=== PATIENT | female | born 1965 | race Two or more races ===

== ENCOUNTER 2018-10-12 17:35 | Inpatient (IN) | payer OTHER ==
[~2018-10-12] VITALS: Ht 160 cm; Wt 74.8 kg
--- NOTE | 2018-10-12 17:46 | NUR ---
THIS IS A 53 YEAR OLD FEMALE WHO C/O OF SHARP ABD PAIN X 4 DAYS, ALONG WITH PAINFUL URINATION. TO BATHROOM, INSTRUCTED NEED FOR UA. FAMILY AT BS
[2018-10-12] MEDS ORDERED: ONDANSETRON 2MG/ML, 2ML ONE ×2 (18:00→19:27)
[2018-10-12] MEDS ORDERED: ONDANSETRON 2MG/ML, 2ML IVPush ONE ×2 (18:00→19:30)
[2018-10-12] MEDS ORDERED: MORPHINE SULFATE 4 MG/ML, 1ML ONE ×2 (18:01→19:28)
[2018-10-12] MEDS: MORPHINE SULFATE 4 MG/ML, 1ML IVPush PRN ×2 (18:12→19:31)
[2018-10-12 18:13] LABS: BASOPHILS # (AUTO) 0.02 x10^3/uL (0-0.1); BASOPHILS % (AUTO) 0 % (0-1); EOSINOPHILS # (AUTO) 0.22 x10^3/uL (0-0.4); EOSINOPHILS % (AUTO) 2 % (1-7); LYMPHOCYTES # (AUTO) 2.05 x10^3/uL (1-3.4); LYMPHOCYTES % (AUTO) 22 % (22-44); MD NO; MEAN CORPUSCULAR HEMOGLOBIN 28.9 pg (27.0-34.8); MEAN CORPUSCULAR HGB CONC 33.4 g/dL (32.4-35.8); MEAN CORPUSCULAR VOLUME 86.4 fL (80-100); MONOCYTES # (AUTO) 0.59 x10^3/uL (0.2-0.8); MONOCYTES % (AUTO) 6 % (2-9); NEUTROPHILS # (AUTO) 6.26 x10^3/uL (1.8-6.8); NEUTROPHILS % (AUTO) 69 % (42-75); PLATELET COUNT 285 x10^3/uL (130-400); RED BLOOD COUNT 5.38 x10^6/uL (3.82-5.3); RED CELL DISTRIBUTION WIDTH 14.5 % (9.6-15.2)
--- NOTE | 2018-10-12 18:15 | NUR ---
MEDICATED PER ORDER, PT TOLERATED WELL
[2018-10-12 18:20] LABS: MICROSCOPIC INDICATED
[2018-10-12 18:24] LABS: ALANINE AMINOTRANSFERASE 19 U/L (12-78); ANION GAP 9 mmol/L (5-15); CALCIUM 9.2 mg/dL (8.5-10.1); CHLORIDE 99 mmol/L (98-107); CREATININE 1.09 mg/dL (0.55-1.02)
[2018-10-12 18:26] LABS: ALKALINE PHOSPHATASE 116 U/L (45-117); BILIRUBIN,TOTAL 0.5 mg/dL (0.2-1.0); TOTAL PROTEIN 8.6 g/dL (6.4-8.2)
[2018-10-12 18:32] LABS: CULTURE INDICATED? NO
[2018-10-12 18:54] LABS: INTERNATIONAL NORMALIZED RATIO 1.06 (0.93-1.1); PROTHROMBIN TIME 11.1 Seconds (9.6-11.5)
--- NOTE | 2018-10-12 19:07 | NUR ---
PT RESTING CALMLY, DENIES NEEDS, MONITORS IN PLACE, CALL LIGHT WITHIN REACH. AWAITING CT RESULT
[2018-10-12] MEDS ORDERED: PIPERACILLIN/TAZO/PMX 3.375GM 50 ML ONE (19:28)
[2018-10-12] MEDS ORDERED: PIPERACILLIN/TAZO/PMX 3.375GM 50 ML IV ONE (19:30)
[2018-10-12] MEDS ORDERED: METRONIDAZOLE PMX 500MG/100ML 100 ML IV ONE (19:30)
--- NOTE | 2018-10-12 19:36 | NUR ---
PT MEDICATED PER MAR, AWAITING ROOM FOR ADMIT
--- NOTE | 2018-10-12 19:46 | NUR ---
ATTEMPTED TO CALL REPORT, NO ANSWER AT THIS TIME
[2018-10-12] MEDS ORDERED: SODIUM CHLORIDE 0.9% 1,000ML IVBOLUS ONE (20:00)
[2018-10-12] MEDS ORDERED: ONDANSETRON 2MG/ML, 2ML IVPush PRN (20:30)
[2018-10-12] MEDS ORDERED: PROPOFOL 50 ML ONE (20:40)
[2018-10-12] MEDS ORDERED: FENTANYL PF 250 MCG/5ML ONE (20:40)
[2018-10-12] MEDS ORDERED: MIDAZOLAM 1 MG/ML, 2ML ONE (20:40)
[2018-10-12] MEDS ORDERED: DEXAMETHASONE 4 MG/ML, 1ML ONE (20:45)
[2018-10-12] MEDS ORDERED: ROCURONIUM 10MG/ML,5ML ONE (20:45)
[2018-10-12] MEDS ORDERED: KETOROLAC 30 MG/1 ML ONE (20:45)
[2018-10-12] MEDS ORDERED: SUCCINYLCHOLINE 20 MG/ML, 10ML ONE (20:45)
[2018-10-12] MEDS ORDERED: hydrALAzine 20 MG/ML, 1ML IV PRN (21:30)
[2018-10-12] MEDS ORDERED: MEPERIDINE/PF 25MG/0.5ML IVPush PRN (21:30)
[2018-10-12] MEDS ORDERED: EPHEDRINE 50 MG/ML, 1ML IVPush PRN (21:30)
[2018-10-12] MEDS ORDERED: MIDAZOLAM 1 MG/ML, 2ML IV PRN (21:30)
[2018-10-12] MEDS ORDERED: OXYcodone 5 MG/5 ML ORAL.SOL UDC PO PRN (21:30)
[2018-10-12] MEDS ORDERED: MORPHINE SULFATE 4 MG/ML, 1ML IVPush PRN (21:30)
[2018-10-12] MEDS ORDERED: METOPROLOL 1 MG/ML, 5ML IV PRN (21:30)
[2018-10-12] MEDS ORDERED: DIAZEPAM 5 MG/ML, 2ML IVPush PRN (21:30)
[2018-10-12] MEDS ORDERED: ONDANSETRON ODT 8 MG PO PRN (21:30)
[2018-10-12] MEDS ORDERED: EPHEDRINE 50 MG/ML, 1ML IM PRN (21:30)
[2018-10-12] MEDS ORDERED: DIPHENHYDRAMINE 50 MG/ML, 1ML IVPush PRN (21:30)
[2018-10-12] MEDS ORDERED: ONDANSETRON 2MG/ML, 2ML IV PRN (21:30)
[2018-10-12] MEDS ORDERED: OXYcodone 5 MG/5 ML ORAL.SOL UDC ONE (22:16)
[2018-10-12] MEDS ORDERED: FENTANYL PF 100 MCG/2ML ONE (22:16)
[2018-10-12] MEDS: FENTANYL PF 100 MCG/2ML IV PRN ×2 (22:17→22:28)
[2018-10-12 22:59] VITALS: BP 98/66
[2018-10-12] MEDS: SODIUM CHLORIDE 0.9% 1,000 ML IV SCH (23:54)
[2018-10-13] MEDS: PIPERACILLIN/TAZO/PMX 3.375GM 50 ML IV SCH ×4 (01:06→19:45)
[2018-10-13 02:03] VITALS: BP 99/67
[2018-10-13] MEDS: morphine SULFATE 10 MG/ML, 1ML IVPush PRN ×3 (04:39→18:08)
[2018-10-13 05:05] LABS: MEAN CORPUSCULAR HGB CONC 33.5 g/dL (32.4-35.8); MEAN CORPUSCULAR VOLUME 86.8 fL (80-100); MEAN PLATELET VOLUME 10.1 fL (7.4-10.4); PLATELET COUNT 245 x10^3/uL (130-400); RED BLOOD COUNT 4.62 x10^6/uL (3.82-5.3); RED CELL DISTRIBUTION WIDTH 14.8 % (9.6-15.2)
[2018-10-13 05:10] LABS: ALANINE AMINOTRANSFERASE 25 U/L (12-78); ALBUMIN 3.2 g/dL (3.4-5.0); ANION GAP 6 mmol/L (5-15); CHLORIDE 103 mmol/L (98-107); CREATININE 1.13 mg/dL (0.55-1.02)
[2018-10-13 05:13] LABS: ALKALINE PHOSPHATASE 94 U/L (45-117); BILIRUBIN,TOTAL 0.7 mg/dL (0.2-1.0)
[2018-10-13 05:49] LABS: BASOPHILS # (AUTO) 0.05 x10^3/uL (0-0.1); BASOPHILS % (AUTO) 0 % (0-1); EOSINOPHILS % (AUTO) 0 % (1-7); LYMPHOCYTES # (AUTO) 0.73 x10^3/uL (1-3.4); LYMPHOCYTES % (AUTO) 4 % (22-44); MD SCAN; MONOCYTES # (AUTO) 0.84 x10^3/uL (0.2-0.8); MONOCYTES % (AUTO) 5 % (2-9); NEUTROPHILS # (AUTO) 16.68 x10^3/uL (1.8-6.8); NEUTROPHILS % (AUTO) 91 % (42-75)
[2018-10-13] MEDS: SODIUM CHLORIDE 0.9% 1,000 ML IV SCH ×2 (08:44→18:00)
[2018-10-13 09:26] VITALS: BP 99/64
[2018-10-13 13:00] VITALS: BP 93/57
[2018-10-13 19:21] VITALS: BP 97/64
[2018-10-14 01:05] VITALS: BP 94/68
[2018-10-14] MEDS: SODIUM CHLORIDE 0.9% 1,000 ML IV SCH (01:29)
[2018-10-14] MEDS: PIPERACILLIN/TAZO/PMX 3.375GM 50 ML IV SCH ×4 (01:29→19:15)
[2018-10-14] MEDS: morphine SULFATE 10 MG/ML, 1ML IVPush PRN ×3 (03:07→19:29)
[2018-10-14 05:40] LABS: BASOPHILS # (AUTO) 0.03 x10^3/uL (0-0.1); BASOPHILS % (AUTO) 0 % (0-1); EOSINOPHILS # (AUTO) 0.08 x10^3/uL (0-0.4); EOSINOPHILS % (AUTO) 1 % (1-7); LYMPHOCYTES # (AUTO) 1.48 x10^3/uL (1-3.4); LYMPHOCYTES % (AUTO) 18 % (22-44); MD NO; MEAN CORPUSCULAR HEMOGLOBIN 29.3 pg (27.0-34.8); MEAN CORPUSCULAR HGB CONC 33.2 g/dL (32.4-35.8); MEAN CORPUSCULAR VOLUME 88.1 fL (80-100); MONOCYTES % (AUTO) 10 % (2-9); NEUTROPHILS # (AUTO) 6.02 x10^3/uL (1.8-6.8); NEUTROPHILS % (AUTO) 72 % (42-75); PLATELET COUNT 198 x10^3/uL (130-400); RED BLOOD COUNT 3.65 x10^6/uL (3.82-5.3); RED CELL DISTRIBUTION WIDTH 15.1 % (9.6-15.2)
[2018-10-14 05:48] LABS: ALBUMIN 2.6 g/dL (3.4-5.0); ANION GAP 3 mmol/L (5-15); CALCIUM 7.5 mg/dL (8.5-10.1); CHLORIDE 106 mmol/L (98-107)
[2018-10-14 05:51] LABS: ALANINE AMINOTRANSFERASE 17 U/L (12-78); ALKALINE PHOSPHATASE 71 U/L (45-117); BILIRUBIN,TOTAL 0.6 mg/dL (0.2-1.0); CREATININE 0.66 mg/dL (0.55-1.02); TOTAL PROTEIN 5.9 g/dL (6.4-8.2)
[2018-10-14 07:46] VITALS: BP 98/66
[2018-10-14 13:35] VITALS: BP 107/72
[2018-10-14] MEDS: LIDODERM 5% PATCH TD SCH (16:08)
[2018-10-14] MEDS ORDERED: ALBUTEROL SULFATE 2.5 MG/3 ML NPPB PRN (17:00)
[2018-10-14] MEDS ORDERED: ALBUTEROL/IPRATROPIUM 2.5MG/0.5MG, 3 ML NPPB PRN (17:30)
[2018-10-14] MEDS ORDERED: NS + 20MEQ KCL 1,000 ML IV ONE (18:00)
[2018-10-14 19:41] VITALS: BP 113/74
[2018-10-14] MEDS ORDERED: OMNIPAQUE 350 MG/ML, 100ML BOTTLE ONE (20:28)
[2018-10-15] MEDS: morphine SULFATE 10 MG/ML, 1ML IVPush PRN ×3 (00:30→19:32)
[2018-10-15 00:39] VITALS: BP 123/73
[2018-10-15] MEDS: PIPERACILLIN/TAZO/PMX 3.375GM 50 ML IV SCH ×4 (01:11→19:15)
[2018-10-15 06:48] VITALS: BP 125/83
[2018-10-15 07:45] LABS: BASOPHILS # (AUTO) 0.04 x10^3/uL (0-0.1); BASOPHILS % (AUTO) 1 % (0-1); EOSINOPHILS % (AUTO) 2 % (1-7); LYMPHOCYTES # (AUTO) 1.06 x10^3/uL (1-3.4); LYMPHOCYTES % (AUTO) 12 % (22-44); MD NO; MEAN CORPUSCULAR HEMOGLOBIN 29.1 pg (27.0-34.8); MEAN CORPUSCULAR HGB CONC 33.3 g/dL (32.4-35.8); MEAN CORPUSCULAR VOLUME 87.3 fL (80-100); MEAN PLATELET VOLUME 9.6 fL (7.4-10.4); MONOCYTES % (AUTO) 8 % (2-9); NEUTROPHILS # (AUTO) 6.94 x10^3/uL (1.8-6.8); NEUTROPHILS % (AUTO) 78 % (42-75); PLATELET COUNT 211 x10^3/uL (130-400); RED BLOOD COUNT 3.74 x10^6/uL (3.82-5.3); RED CELL DISTRIBUTION WIDTH 14.8 % (9.6-15.2)
[2018-10-15 07:58] LABS: ANION GAP 4 mmol/L (5-15); CALCIUM 8.2 mg/dL (8.5-10.1); CHLORIDE 104 mmol/L (98-107); CREATININE 0.53 mg/dL (0.55-1.02)
[2018-10-15] MEDS: PSYLLIUM PACKET PO SCH (09:00)
[2018-10-15 12:47] VITALS: BP 128/78
[2018-10-15] MEDS ORDERED: LIDOCAINE-MPF 1%, 5ML ONE (14:27)
[2018-10-15] MEDS: LIDODERM 5% PATCH TD SCH (19:16)
[2018-10-15 19:48] VITALS: BP 121/72
[2018-10-16] MEDS: PIPERACILLIN/TAZO/PMX 3.375GM 50 ML IV SCH ×3 (00:59→13:30)
[2018-10-16 01:56] VITALS: BP 125/76
[2018-10-16] MEDS: morphine SULFATE 10 MG/ML, 1ML IVPush PRN (05:29)
[2018-10-16] MEDS ORDERED: HYDROcodone/APAP 5/325 TABLET PO PRN (07:30)
[2018-10-16 08:08] VITALS: BP 127/82
[2018-10-16 08:44] LABS: BASOPHILS # (AUTO) 0.03 x10^3/uL (0-0.1); BASOPHILS % (AUTO) 0 % (0-1); EOSINOPHILS # (AUTO) 0.15 x10^3/uL (0-0.4); EOSINOPHILS % (AUTO) 2 % (1-7); LYMPHOCYTES # (AUTO) 1.27 x10^3/uL (1-3.4); LYMPHOCYTES % (AUTO) 20 % (22-44); MD NO; MEAN CORPUSCULAR HEMOGLOBIN 29.3 pg (27.0-34.8); MEAN CORPUSCULAR HGB CONC 33.7 g/dL (32.4-35.8); MEAN CORPUSCULAR VOLUME 86.9 fL (80-100); MEAN PLATELET VOLUME 10.1 fL (7.4-10.4); MONOCYTES % (AUTO) 8 % (2-9); NEUTROPHILS # (AUTO) 4.45 x10^3/uL (1.8-6.8); NEUTROPHILS % (AUTO) 70 % (42-75); PLATELET COUNT 225 x10^3/uL (130-400); RED BLOOD COUNT 3.94 x10^6/uL (3.82-5.3); RED CELL DISTRIBUTION WIDTH 14.1 % (9.6-15.2)
[2018-10-16] MEDS ORDERED: DOCUSATE 100 MG CAPSULE PO SCH (09:00)
[2018-10-16] MEDS: PSYLLIUM PACKET PO SCH (09:43)
[2018-10-16] MEDS ORDERED: PSYL3.4P8 PO (11:46)
[2018-10-16] MEDS ORDERED: DOCU-131 PO (11:46)
[2018-10-16] MEDS ORDERED: HYDR-3237 PO (11:46)
[2018-10-16] MEDS ORDERED: AMOX1TAB64 PO (11:46)
[2018-10-16] MEDS ORDERED: LIDO700A20 TD (11:46)
[2018-10-16] MEDS ORDERED: ALBU18HF IH (13:04)
[2018-10-16 13:57] VITALS: BP 130/83
== END 2018-10-16 19:48 | disposition home or self-care (01) | DRG 335 ==
LOC: ED 17:57 → EDIP 19:25 → EDBD 19:25 → 3NE 21:29
PROVIDERS: ADMIT Surgery; ATTEND Surgery
PROC: 0DCB0ZZ Extirpation of Matter from Ileum, Open Approach (ICD-10-PCS; 2018-10-12)
PROC: 0DNU0ZZ Release Omentum, Open Approach (ICD-10-PCS; 2018-10-12)
PROC: 0GBG3ZX Excision of Left Thyroid Gland Lobe, Percutaneous Approach, Diagnostic (ICD-10-PCS; principal; 2018-10-15)
DX: K56.3 Gallstone ileus (principal); K65.0 Generalized (acute) peritonitis; J96.01 Acute respiratory failure with hypoxia; N17.0 Acute kidney failure with tubular necrosis; J98.11 Atelectasis; K80.00 Calculus of gallbladder with acute cholecystitis without obstruction; K66.0 Peritoneal adhesions (postprocedural) (postinfection); E07.9 Disorder of thyroid, unspecified; J39.8 Other specified diseases of upper respiratory tract; Z90.710 Acquired absence of both cervix and uterus; Z82.49 Family history of ischemic heart disease and other diseases of the circulatory system; Z83.3 Family history of diabetes mellitus; Z90.49 Acquired absence of other specified parts of digestive tract
CPT/HCPCS: 36415; 36600; 71045; 71046; 71275; 74177; 76942; 80048; 80053; 81001; 82803; 83690; 84443; 85025; 85610; 85730; 87040; 88173; 88300; 93005; 96374; 96375; 96376; G0378; J1100; J1885; J2250; J2405; J2543; J2704; J3010; J3480; Q9967; J0330; J2270; J7030